=== PATIENT | female | born 1980 | race Caucasian/White ===

== ENCOUNTER → 2016-05-01 | Outpatient (CLI) | payer OTHER ==
[~2016-05-01] MED LIST: ADVIL200 MG PO; CLINDAMYCIN300 MG PO; HYDROCODONE BIT1 T11 PO; OMNICEF300 MG PO; SYNTHROID0.025 MG PO; TYLENOL W/CODEI1 TA7 PO
[2016-05-01 10:20] LABS: ALBUMIN 3.6 gm/dl (3.1-4.5); ALKALINE PHOSPHATASE 54 U/L (45-117); BILIRUBIN, TOTAL 0.9 mg/dl (0.2-1.0); BUN 11 mg/dl (7-24); CARBON DIOXIDE 21 mmol/L (21-32); CHLORIDE 108 mmol/L (98-107); EST GLOM FILT AFRICAN AMERICAN > 60 ml/min; GLUCOSE 105 mg/dL (65-99); SGOT/AST 17 IU/L (3-35); SGPT/ALT 44 U/L (12-78); SODIUM 140 mmol/L (136-145); TOTAL PROTEIN 6.5 gm/dL (6.4-8.2)
== END | disposition home or self-care (01) ==
LOC: LAB 09:11
PROVIDERS: Physician Assistant
DX: Z79.1 Long term (current) use of non-steroidal anti-inflammatories (NSAID) (principal)

== ENCOUNTER 2017-01-07 16:22 | Emergency (ER) | payer BC, OTHER ==
[~2017-01-07] VITALS: Wt 74.8 kg
[2017-01-07] MEDS ORDERED: LEVOTHYROXINE50 MCG PO (16:30)
[2017-01-07] MEDS ORDERED: CEFADROXIL500 M1 PO (16:55)
== END 2017-01-07 19:38 | disposition home or self-care (01) ==
LOC: ED 16:22
DX: S61.211A Laceration without foreign body of left index finger without damage to nail, initial encounter (principal); F17.200 Nicotine dependence, unspecified, uncomplicated; W26.0XXA Contact with knife, initial encounter; Y93.89 Activity, other specified; Y92.89 Other specified places as the place of occurrence of the external cause; Y99.8 Other external cause status

== ENCOUNTER 2017-06-29 16:24 | Emergency (ER) | payer BC, OTHER ==
[~2017-06-29] VITALS: Wt 72.6 kg
[~2017-06-29 16:24] MED LIST changes: +CEFADROXIL500 M1 PO; +LEVOTHYROXINE50 MCG PO
[2017-06-29] MEDS ORDERED: DEPO PROVER150 MG/M1 IM (16:28)
[2017-06-29] MEDS ORDERED: PREDNISONE10 MG PO (16:37)
== END 2017-06-29 17:03 | disposition home or self-care (01) ==
LOC: ED 16:24
DX: M77.9 Enthesopathy, unspecified (principal); R03.0 Elevated blood-pressure reading, without diagnosis of hypertension; F17.200 Nicotine dependence, unspecified, uncomplicated; Z79.899 Other long term (current) drug therapy

== ENCOUNTER 2019-02-11 02:24 | Emergency (ER) | payer OTHER ==
[~2019-02-11] VITALS: Ht 162.5 cm; Wt 74.8 kg
[~2019-02-11 02:24] MED LIST changes: +DEPO PROVER150 MG/M1 IM; +PREDNISONE10 MG PO
[2019-02-11 03:53] LABS: BASO # 0.1 10*3/uL (0.0-0.1); BASO % 0.4 % (0.0-1.0); EOS # 0.3 10*3/uL (0.0-0.4); EOS % 2.6 % (1.0-4.0); HEMATOCRIT 40.8 % (37.0-47.0); HEMOGLOBIN 13.4 g/dl (12.0-16.0); LYMPH # 2.5 10*3/uL (1.3-4.4); LYMPH % 21.9 % (27.0-41.0); MEAN CELL VOLUME 95.8 fl (81.0-99.0); MEAN CORPUSCULAR HGB 31.5 pg (27.0-31.0); MEAN CORPUSCULAR HGB CONC 32.8 g/dl (33.0-37.0); MEAN PLATELET VOLUME 11.1 fl (9.6-12.3); MONO # 0.6 10*3/uL (0.1-1.0); MONO % 5.1 % (3.0-9.0); NEUT % 69.6 % (47.0-73.0); PLATELET COUNT AUTOMATED 248 10*3/uL (130-400); RED BLOOD COUNT 4.26 10*6/uL (4.10-5.10); RED CELL DISTRI WIDTH 13.6 % (0-14.5); WHITE BLOOD COUNT 11.4 10*3/uL (4.8-10.8)
[2019-02-11 04:09] LABS: BUN 18 mg/dl (7-24); CHLORIDE 108 mmol/L (98-107); CREATININE 0.84 mg/dL (0.55-1.02); POTASSIUM 3.8 mmol/L (3.5-5.1); SODIUM 137 mmol/L (136-145)
[2019-02-11] MEDS ORDERED: ULTRAM50 MG PO (05:09)
[2019-02-11] MEDS ORDERED: CLEOCIN HCL300 MG PO (05:09)
[2019-02-11] MEDS ORDERED: Motrin,Rufen800 MG PO (05:15)
== END 2019-02-11 05:28 | disposition home or self-care (01) ==
LOC: ED 02:24
PROVIDERS: Emergency Medicine Emergency Medical Services
DX: K02.9 Dental caries, unspecified (principal); K04.01 Reversible pulpitis; Z79.899 Other long term (current) drug therapy

== ENCOUNTER 2020-06-18 12:35 | Emergency (ER) | payer OTHER ==
[~2020-06-18] VITALS: Ht 162.5 cm; Wt 72.6 kg
[~2020-06-18 12:35] MED LIST changes: +CLEOCIN HCL300 MG PO; +Motrin,Rufen800 MG PO; +ULTRAM50 MG PO
[2020-06-18] MEDS ORDERED: IBUPROFEN600 MG PO (14:39)
== END 2020-06-18 16:47 | disposition home or self-care (01) ==
LOC: ED 12:35
DX: S92.341A Displaced fracture of fourth metatarsal bone, right foot, initial encounter for closed fracture (principal); Z79.899 Other long term (current) drug therapy; X58.XXXA Exposure to other specified factors, initial encounter; Y93.89 Activity, other specified; Y92.89 Other specified places as the place of occurrence of the external cause; Y99.8 Other external cause status